=== PATIENT | male | born 1985 | race Two or more races ===

== ENCOUNTER 2019-04-23 00:22 | Emergency (ER) | payer SELFPAY ==
[~2019-04-23] VITALS: Ht 185.4 cm; Wt 105.2 kg
--- NOTE | 2019-04-23 01:00 | NUR ---
Pt BIBRA FROM STREETS, WITH MULTIPLE COMPLAINTS OF PAIN. CHIEF COMPLAINT OF HEADACHE, WITH RT TEMPORAL PAIN, RT UPPER TOOTHACHE, RT EYE PAIN, RT FOOT & ANKLE PAIN FOR THE PAST FEW DAYS. Pt DENIES FALLING OR HAVING ANY HEAD TRAUMA. DENIES GETTING INTO A FIGHT. Pt IS RESTING COMFORTABLY IN BED. SEEN BY MD AT BEDSIDE. VS STABLE. WILL CONTINUE TO MONITOR Pt's CONDITION AND SAFETY.
--- NOTE | 2019-04-23 01:10 | NUR ---
HEAD CT DONE
[2019-04-23] MEDS ORDERED: HYDROCODONE/APAP 10/325MG 1 EA TABLET ONE (01:14)
[2019-04-23] MEDS ORDERED: PENICILLIN V POTASSIUM 500 MG TABLET PO ONE ×2 (01:14→01:30)
[2019-04-23] MEDS ORDERED: ONDANSETRON 4 MG TAB.RAPDIS ONE (01:14)
--- NOTE | 2019-04-23 01:26 | NUR ---
ALL ORDERED MEDS GIVEN
[2019-04-23] MEDS ORDERED: ONDANSETRON 4 MG TAB.RAPDIS SL ONE (01:30)
[2019-04-23] MEDS ORDERED: HYDROCODONE/APAP 10/325MG 1 EA TABLET PO ONE (01:30)
[2019-04-23 06:02] VITALS: BP 136/80
--- NOTE | 2019-04-23 06:03 | NUR ---
Patient discharged to home in stable condition. Written and verbal after care instructions given. Patient verbalizes understanding of instruction. Patient left facility on foot with steady gaitn. No s/s of acute distress or sob noted. No IV or ID band on pt. VS stable.
== END 2019-04-23 06:03 | disposition home or self-care (01) ==
LOC: ER 00:22
DX: R51 Headache (principal); M79.672 Pain in left foot; M79.671 Pain in right foot; K08.89 Other specified disorders of teeth and supporting structures; Z60.2 Problems related to living alone
CPT/HCPCS: 70450; 73630 ×2; 99284; Q0162